=== PATIENT | male | born 1975 | race Caucasian/White ===

== ENCOUNTER 2021-02-22 08:39 | Emergency (ER) | payer OTHER ==
[2021-02-22] MEDS ORDERED: Acetaminophen 500 MG TAB ONE (08:59)
[2021-02-22 11:47] LABS: SARS-CoV-2 NAA Rapid Test DETECTED (NotDetected)
== END 2021-02-22 12:57 | disposition home or self-care (01) ==
LOC: MADERS 08:39
DX: U07.1 COVID-19 (principal)
CPT/HCPCS: 0241U; 71045